=== PATIENT | female | born 1980 | race Caucasian/White ===

== ENCOUNTER 2016-04-25 06:55 | Inpatient (IN) | payer MEDICAID ==
[~2016-04-25] VITALS: Ht 152.4 cm; Wt 88.3 kg
[2016-04-25 07:16] LABS: GLUCOSE,POINT OF CARE 122 MG/DL (70-110)
[2016-04-25] MEDS ORDERED: METF500T4 PO (07:26)
[2016-04-25] MEDS ORDERED: MECLIZINE HCL 25 MG TABLET PO ONE (07:45)
[2016-04-25 08:00] LABS: BASOPHILS # (AUTO) 0.05 K/uL (0.00-0.20); BASOPHILS % (AUTO) 0.6 % (0.0-2.0); EOSINOPHILS # (AUTO) 0.08 K/uL (0.00-0.70); EOSINOPHILS % (AUTO) 0.98 % (1.0-6.0); HEMATOCRIT 37.2 % (36-46); HEMOGLOBIN 12.3 g/dL (12.0-16.0); LYMPHOCYTES # (AUTO) 2.7 K/uL (1.0-4.8); LYMPHOCYTES % (AUTO) 33.7 % (22.0-44.0); MEAN CORPUSCULAR HEMOGLOBIN 28.5 pg (26.0-34.0); MEAN CORPUSCULAR HGB CONC 33.2 G/dL (31.0-37.0); MEAN CORPUSCULAR VOLUME 86 fL (80-100); MONOCYTES # (AUTO) 0.6 K/uL (0.1-1.0); MONOCYTES % (AUTO) 7.7 % (2.0-9.0); NEUTROPHILS # (AUTO) 4.6 K/uL (1.8-7.7); PLATELET COUNT (AUTO) 270 K/uL (150-450); RED BLOOD CELL COUNT(AUTO) 4.33 MIL/uL (4.00-5.20); RED CELL DISTRIBUTION WIDTH 14.9 % (11.5-14.5); WHITE BLOOD COUNT (AUTO) 8.1 K/uL (4.5-11.0)
[2016-04-25 08:07] LABS: ANION GAP 7 mmol/L (8-16); CALCIUM, TOTAL 8.2 mg/dL (8.8-10.5); CARBON DIOXIDE 29 mmol/L (22-29); CHLORIDE 102 mmol/L (98-107); CREATININE 0.61 mg/dL (0.60-1.30); GLOMERULAR FILTR. RATE CALC > 60 mL/min (>60); POTASSIUM 3.8 mmol/L (3.5-5.1); SODIUM SERUM 138 mmol/L (136-145); UREA NITROGEN, BLOOD 9 mg/dL (7-18)
[2016-04-25 08:16] LABS: ALANINE AMINOTRANSFERASE 20 U/L (12-78); ASPARTATE AMINOTRANSFERASE 13 U/L (15-37); BILIRUBIN,TOTAL 0.6 mg/dL (0.1-1.0)
[2016-04-25 08:17] LABS: ALBUMIN 3.5 g/dL (3.4-5.0); TOTAL PROTEIN, SERUM 7.5 g/dL (6.4-8.2)
[2016-04-25 08:31] LABS: CREATINE KINASE, TOTAL 87 U/L (26-192)
[2016-04-25] MEDS ORDERED: BISACODYL 10 MG RECTAL RECTAL SUPPOSITORY PR PRN (09:30)
[2016-04-25] MEDS ORDERED: ZOLPIDEM TARTRATE 5 MG TABLET PO PRN (09:30)
[2016-04-25] MEDS ORDERED: MAGNESIUM HYDROXIDE SUSPENSION 30 ML UDCUP PO PRN (09:30)
[2016-04-25] MEDS ORDERED: OxyCODONE HCL/ACETAMINOPHEN 5-325 MG TABLET PO PRN (09:30)
[2016-04-25] MEDS ORDERED: ONDANSETRON HCL 4 MG/2 ML VIAL IVP PRN (09:30)
[2016-04-25] MEDS ORDERED: INSULIN ASPART 100 UNITS/ML SQ PRN (09:30)
[2016-04-25] MEDS ORDERED: DEXTROSE 50%-WATER 25 GM/50 ML SYRINGE IVP PRN (09:30)
[2016-04-25] MEDS ORDERED: ACETAMINOPHEN 325 MG TABLET PO PRN (09:30)
[2016-04-25 11:32] VITALS: BP 126/60
[2016-04-25 13:56] LABS: GLUCOSE,POINT OF CARE 104 MG/DL (70-110)
[2016-04-25 15:02] VITALS: BP 103/67
[2016-04-25] MEDS: HEPARIN SODIUM,PORCINE 5,000 UNITS/ML VIAL SQ SCH (15:08)
[2016-04-25] MEDS: MECLIZINE HCL 25 MG TABLET PO SCH ×2 (15:08→20:17)
[2016-04-25 19:51] VITALS: BP 107/70
[2016-04-25 23:53] VITALS: BP 98/66
[2016-04-26] MEDS: HEPARIN SODIUM,PORCINE 5,000 UNITS/ML VIAL SQ SCH ×2 (00:31→09:24)
[2016-04-26 05:19] VITALS: BP 100/62
[2016-04-26 07:14] VITALS: BP 99/68
[2016-04-26] MEDS ORDERED: MetFORMIN HCL 500 MG TABLET PO SCH (08:00)
[2016-04-26] MEDS ORDERED: PANTOPRAZOLE SODIUM 40 MG DR TABLET PO SCH (09:00)
[2016-04-26] MEDS: MECLIZINE HCL 25 MG TABLET PO SCH (09:24)
[2016-04-26] MEDS ORDERED: MECL-111 PO (10:46)
[2016-04-26 11:18] VITALS: BP 101/71
[2016-04-26 20:42] LABS: GLUCOSE,POINT OF CARE 112 MG/DL (70-110)
[2016-04-26 20:43] LABS: GLUCOSE,POINT OF CARE 126 MG/DL (70-110)
[2016-04-27 20:11] LABS: GLUCOSE COMMENT 1 Received Meds; GLUCOSE,POINT OF CARE 97 MG/DL (70-110)
== END 2016-04-26 12:00 | disposition home or self-care (01) | DRG 111 ==
LOC: EMS 06:57 → 5N 09:46
PROVIDERS: ADMIT Hospitalist; ATTEND Hospitalist
DX: R42 Dizziness and giddiness (principal); E11.9 Type 2 diabetes mellitus without complications; Z88.0 Allergy status to penicillin; Z79.899 Other long term (current) drug therapy
CPT/HCPCS: 70450; 82962; 93005; 99285; J1644